=== PATIENT | male | born 1950 | race Hispanic/Latino ===

== ENCOUNTER → 2019-01-18 | Outpatient (CLI) | payer MEDICARE ==
--- NOTE | 2019-01-18 12:54 | Diagnostic Imaging Report ---
Exam: KUB - 2 views Indication: Hematuria Comparison: None Findings: No radiographically apparent renal calculi. Nonobstructive bowel gas pattern. No free air. The osseous structures appear unremarkable. Impression: No radiographically apparent renal calculi. Signed by: Reji Márquez MD on 01/18/2019 12:51 PM
--- NOTE | 2019-01-18 15:45 | Diagnostic Imaging Report ---
EXAM: Renal Ultrasound INDICATION: Spermatocele, Renal function COMPARISON: None TECHNIQUE: Transverse and longitudinal images of the kidneys and bladder were obtained. FINDINGS: Right Kidney: Length: 9.1 cm Appearance: Normal echogenicity. Collecting system: No hydronephrosis Stones: None Cyst/Mass: None Left Kidney: Length: 10.3 cm Appearance: Normal echogenicity. Collecting system: No hydronephrosis Stones: None Cyst/Mass: None Bladder: No mass or calculi. Bilateral ureteral jets visualized. Prevoid volume estimate of 211.2 cc Prostate volume estimate of 44.5 cc. IMPRESSION: No hydronephrosis or renal calculi. Signed by: Reji Márquez MD on 01/18/2019 3:41 PM
--- NOTE | 2019-01-18 16:54 | Diagnostic Imaging Report ---
Exam: Testicular ultrasound. Clinical History: Spermatocele Findings: Sonographic evaluation of the testicles. Both testes are normal in echogenicity and size without intratesticular mass. Normal symmetric blood flow to both testicles without evidence of torsion. Right: The right testicle measures 3.6 x 1.8 x 2.6 cm and appears unremarkable. The right epididymis measures 2.1 x 2.0 x 2.6 cm and contains multiple spermatoceles, the largest of which measure up to 1.6 cm and 1.4 cm. No hydrocele or varicocele. Left: The left testicle measures 3.5 x 1.6 x 2.2 cm and appears unremarkable. The left epididymis measures 1.4 x 1.2 x 1.3 cm and contains a 1.3 cm spermatocele. No varicocele or hydrocele. Impression: No testicular torsion or intratesticular mass. Bilateral spermatoceles as above. Signed by: Reji Márquez MD on 01/18/2019 4:50 PM
== END ==
LOC: US 11:56
PROVIDERS: ATTEND Urology
DX: N43.40 Spermatocele of epididymis, unspecified (principal); R31.9 Hematuria, unspecified
CPT/HCPCS: 74018; 76770; 76870; 93976